=== PATIENT | male | born 1970 | race Caucasian/White ===

== ENCOUNTER 2017-09-12 07:30 | Emergency (ER) | payer MEDICAID ==
[~2017-09-12] VITALS: Ht 162.6 cm; Wt 68.0 kg
[~2017-09-12 07:30] MED LIST: BEN20 PO; CIPROFLOXACIN500 M1 PO; DOK100 MG PO; EPZICOM1 TAB PO; FERROUS SULFAT325 M2 PO; FLO4 PO; LAC PO; LEVAQUIN LEVA-750 M1 PO; LOP600 PO; MILK OF MAGNESIA; NORVIR100 M2 PO; REGLAN10 MG PO; REYATAZ300 MG PO; TRAMADOL50 MG PO
[2017-09-12 07:45] VITALS: Ht 162.6 cm; Wt 68.0 kg
[2017-09-12 08:15] VITALS: BP 103/77
== END 2017-09-12 08:15 | disposition home or self-care (01) ==
LOC: ED 07:30
DX: J02.9 Acute pharyngitis, unspecified (principal)

== ENCOUNTER 2017-12-09 21:28 | Emergency (ER) | payer MEDICAID ==
[2017-12-09 22:48] VITALS: BP 136/84
== END 2017-12-09 22:53 | disposition home or self-care (01) ==
LOC: ED 21:28
DX: J06.9 Acute upper respiratory infection, unspecified (principal)

== ENCOUNTER 2018-07-13 17:09 | Emergency (ER) | payer MEDICAID ==
[~2018-07-13] VITALS: Ht 154.9 cm; Wt 68.5 kg
[2018-07-13 17:18] VITALS: Ht 154.9 cm; Wt 68.5 kg
[2018-07-13 20:25] VITALS: BP 134/89
== END 2018-07-13 20:25 | disposition home or self-care (01) ==
LOC: ED 17:09
DX: B34.9 Viral infection, unspecified (principal); K62.5 Hemorrhage of anus and rectum

== ENCOUNTER 2018-11-15 01:33 | Emergency (ER) | payer MEDICAID ==
[~2018-11-15] VITALS: Ht 162.6 cm; Wt 70.4 kg
[2018-11-15 01:56] VITALS: Ht 162.6 cm; Wt 70.4 kg
[2018-11-15 03:06] LABS: BASOPHIL % 0.6 % (0-2); PLATELET COUNT 250 x10^3mcL (130-400); RED CELL DISTRIBUTION WIDTH 13.9 % (11.5-14.5)
[2018-11-15 03:08] LABS: CALCIUM 9.4 mg/dL (8.5-10.1); CARBON DIOXIDE 21.3 mmol/L (21-32); CREATININE SERUM 1.4 mg/dL (0.7-1.3); POTASSIUM SERUM 3.6 mmol/L (3.5-5.1)
[2018-11-15 03:13] LABS: ALBUMIN 3.8 g/dL (3.4-5.0); BILIRUBIN TOTAL 1.48 mg/dL (0.20-1.00); TOTAL PROTEIN, SERUM 8.1 g/dL (6.4-8.2)
[2018-11-15 04:51] VITALS: BP 139/88
== END 2018-11-15 04:51 | disposition home or self-care (01) ==
LOC: ED 01:33
PROVIDERS: Emergency Medicine
DX: R10.9 Unspecified abdominal pain (principal); T50.995A Adverse effect of other drugs, medicaments and biological substances, initial encounter; Y92.89 Other specified places as the place of occurrence of the external cause
CPT/HCPCS: 36415; Q0162